=== PATIENT | female | born 1970 | race African-American/Black ===

== ENCOUNTER 2016-11-05 17:52 | Emergency (ER) | payer OTHER ==
[~2016-11-05] VITALS: Ht 175.3 cm; Wt 119.0 kg
[~2016-11-05 17:52] MED LIST: ABILIFY5 MG PO; ANTACID LIQUID355 ML PO; BACTRIM,SEPT1 TABLET PO; CLONAZEPAM1 MG; IBUPROFEN800 MG PO; IRON325 MG PO; LEXAPRO20 MG; LIDODERM 5% P1 PATCH; MIRALAX17 GM PO; NOHOMEMEDS; OXYCODONE-APAP1 EACH; PERCOCET 5/31 TABLET PO; PROBIOTIC PO; RESTORIL15 MG PO; SERTRALINE HCL50 MG PO; STOOL SOFTENER100 MG PO; TORADOL10 MG PO; XANAX2 MG PO
[2016-11-05 18:52] LABS: CHLORIDE 108 mEq/L (99-109)
[2016-11-05 18:53] LABS: SODIUM 139 mEq/L (136-147)
[2016-11-05 18:54] LABS: GLUCOSE 133 mg/dL (70-99)
[2016-11-05 18:55] LABS: HEMATOCRIT 23.9 % (36.0-46.0); MCH 18.2 PG (29.0-34.0); MCHC 28.5 G/DL (30.0-36.0); MCV 64.1 FL (83-99); MEAN PLAT.VOLUME 10.2 uM^3 (9.5-12.4); PLATELET COUNT 357 K/uL (156-360); RBC DIS.WIDTH-CV 18.5 % (11.8-14.6); RBC DIS.WIDTH-SD 41.1 % (39-53); RED BLOOD COUNT 3.73 M/uL (3.80-5.20); WHITE BLOOD COUNT 6.5 K/uL (4.1-10.2)
[2016-11-05 18:56] LABS: ANION GAP 8 MEQ/L (2-14)
[2016-11-05 18:57] LABS: SERUM ETHYL ALCOHOL < 10 mg/dL
[2016-11-05 18:58] LABS: GFR ESTIMATE (CALCULATED) > 59 mL/min/
[2016-11-05 18:59] LABS: UREA NITROGEN (BUN) 10 mg/dL (9-23)
[2016-11-05 19:08] LABS: QUANTITATIVE HCG < 4.0 MIU/ML
[2016-11-05 21:58] LABS: ADD MEDTOX COMMENT Y; AMPHETAMINE NEGATIVE (500 ng/mL); BARBITURATES NEGATIVE (200 ng/mL); BENZODIAZEPINES PRESUMPTIVE POSITIVE (150 ng/mL); COCAINE NEGATIVE (150 ng/mL); INTERNAL CONTROLS VALID? YES; METHADONE NEGATIVE (200 ng/mL); METHAMPHETAMINE NEGATIVE (500 ng/mL); OPIATES (MORPHINE) PRESUMPTIVE POSITIVE (100 ng/mL); OXYCODONE NEGATIVE (100 ng/mL); PHENCYCLIDINE NEGATIVE (25 ng/mL); PROPOXYPHENE NEGATIVE (300 ng/mL); THC CANNABINOIDS NEGATIVE (50 ng/mL); TRICYCLIC ANTIDEPRESSANTS NEGATIVE (300 ng/mL)
[2016-11-05 22:41] VITALS: BP 110/73
[2016-11-05 23:08] LABS: BENZODIAZEPINES, URINE SCREEN POSITIVE (200 ng/mL)
[2016-11-06 03:00] VITALS: BP 121/71
[2016-11-06 03:15] VITALS: BP 121/71
[2016-11-06 03:28] LABS: HEMATOCRIT 28.9 % (36.0-46.0); MCH 20.1 PG (29.0-34.0); MCHC 29.8 G/DL (30.0-36.0); MCV 67.5 FL (83-99); MEAN PLAT.VOLUME 10.5 uM^3 (9.5-12.4); PLATELET COUNT 336 K/uL (156-360); RBC DIS.WIDTH-CV 21.3 % (11.8-14.6); RBC DIS.WIDTH-SD 49.8 % (39-53); RED BLOOD COUNT 4.28 M/uL (3.80-5.20); WHITE BLOOD COUNT 6.3 K/uL (4.1-10.2)
== END 2016-11-06 03:20 | disposition home or self-care (01) ==
LOC: EME 17:52
PROVIDERS: Emergency Medicine
DX: N93.9 Abnormal uterine and vaginal bleeding, unspecified (principal); D64.9 Anemia, unspecified; F20.9 Schizophrenia, unspecified; Z04.6 Encounter for general psychiatric examination, requested by authority; F17.200 Nicotine dependence, unspecified, uncomplicated; Z88.6 Allergy status to analgesic agent
CPT/HCPCS: 80048; 84702; 84999; 85027; 86900; 86901; 86920; 90837; 99281; 99285; G0480; J7030; P9016

== ENCOUNTER → 2017-02-02 | Outpatient (CLI) | payer OTHER ==
[~2017-02-02] MED LIST changes: +COLACE100 MG PO; +MOTRIN800 MG PO
== END | disposition home or self-care (01) ==
LOC: CDC 12:56
DX: R94.31 Abnormal electrocardiogram [ECG] [EKG] (principal)
CPT/HCPCS: 93000

== ENCOUNTER 2017-02-06 05:28 | Day surgery (SDC) | payer OTHER ==
[~2017-02-06] VITALS: Ht 175.3 cm; Wt 114.8 kg
[2017-02-06 06:56] VITALS: BP 116/56
[2017-02-06 10:18] VITALS: BP 127/67
[2017-02-06 11:12] VITALS: BP 133/76
== END 2017-02-06 11:20 | disposition home or self-care (01) ==
LOC: SDC
DX: D25.9 Leiomyoma of uterus, unspecified (principal); N84.0 Polyp of corpus uteri; N87.1 Moderate cervical dysplasia; N93.8 Other specified abnormal uterine and vaginal bleeding; F41.8 Other specified anxiety disorders; F17.200 Nicotine dependence, unspecified, uncomplicated; Z82.49 Family history of ischemic heart disease and other diseases of the circulatory system; Z83.3 Family history of diabetes mellitus; F20.0 Paranoid schizophrenia
CPT/HCPCS: 84702; 88305; J1100; J1170; J1885; J2250; J2405; J3010

== ENCOUNTER 2017-06-05 09:04 | Day surgery (SDC) | payer OTHER ==
[~2017-06-05] VITALS: Ht 175.3 cm; Wt 117.9 kg
[2017-06-05 09:31] VITALS: BP 144/65
[2017-06-05] MEDS ORDERED: NORCO 5/3251 TABLET PO (11:30)
[2017-06-05] MEDS ORDERED: MOTRIN800 MG PO (11:30)
[2017-06-05 13:03] VITALS: BP 129/64
[2017-06-05 13:38] VITALS: BP 119/58
== END 2017-06-05 13:50 | disposition home or self-care (01) ==
LOC: SDC 09:04
DX: N92.1 Excessive and frequent menstruation with irregular cycle (principal); N84.0 Polyp of corpus uteri; N87.1 Moderate cervical dysplasia; F17.200 Nicotine dependence, unspecified, uncomplicated; Z98.51 Tubal ligation status; G89.29 Other chronic pain; M54.5 Low back pain; K21.9 Gastro-esophageal reflux disease without esophagitis; D50.0 Iron deficiency anemia secondary to blood loss (chronic); F20.0 Paranoid schizophrenia; E66.9 Obesity, unspecified; Z68.38 Body mass index [BMI] 38.0-38.9, adult; Z88.5 Allergy status to narcotic agent
CPT/HCPCS: 88305; 88307; 88342 TC; J1100; J1170; J2250; J2405; J3010